=== PATIENT | male | born 1935 | race Caucasian/White ===

== ENCOUNTER 2016-10-22 19:33 | Inpatient (IN) | payer MEDICARE, OTHER ==
[~2016-10-22] VITALS: Ht 172.7 cm; Wt 63.0 kg
[2016-10-22] MEDS ORDERED: PANT40TA4 PO (19:49)
[2016-10-22] MEDS ORDERED: ACET-73 PO (19:49)
[2016-10-22] MEDS ORDERED: MIRT15TA7 PO (19:49)
[2016-10-22] MEDS ORDERED: DONE5TAB34 PO (19:49)
[2016-10-22] MEDS ORDERED: ATOR40TA PO (19:49)
[2016-10-22] MEDS ORDERED: [UNRECOGNIZED DRUG - CODE] IV (19:49)
[2016-10-22] MEDS ORDERED: ASPI81TA31 PO (19:49)
[2016-10-22] MEDS ORDERED: BLOO-360 IN (19:49)
[2016-10-22] MEDS ORDERED: GLUC1VIA4 IM (19:49)
[2016-10-22] MEDS ORDERED: DEXT50VI3 IV (19:49)
[2016-10-22] MEDS ORDERED: MELO-270 PO (19:49)
[2016-10-22] MEDS ORDERED: DEXT15LI12 PO (19:49)
[2016-10-22] MEDS ORDERED: METF500T4 PO (19:49)
[2016-10-22] MEDS ORDERED: METO-304 PO (19:49)
[2016-10-22] MEDS ORDERED: ALOG12.52 PO (19:49)
[2016-10-22] MEDS ORDERED: NIAC500T23 PO (19:49)
[2016-10-22] MEDS ORDERED: AMLO10TA2 PO (19:49)
[2016-10-22 20:29] LABS: BASOPHILS # (AUTO) 0.1 K/uL (0.0-0.2); BASOPHILS % (AUTO) 0.7 % (0.0-2.0); EOSINOPHILS # (AUTO) 0.1 K/uL (0.0-0.7); EOSINOPHILS % (AUTO) 0.7 % (0.0-7.0); HEMATOCRIT 48.1 % (40.0-50.0); HEMOGLOBIN 16.4 g/dL (14.0-18.0); LYMPHOCYTES # (AUTO) 1.6 K/uL (0.8-4.8); LYMPHOCYTES % (AUTO) 13.8 % (20.5-51.5); MEAN CORPUSCULAR HEMOGLOBIN 30.3 uug (27.0-31.0); MEAN CORPUSCULAR HGB CONC 34 g/dL (32.0-37.0); MEAN CORPUSCULAR VOLUME 88.7 fL (82.0-92.0); MONOCYTES # (AUTO) 0.6 K/uL (0.1-1.30); MONOCYTES % (AUTO) 5.2 % (0.0-11.0); NEUTROPHILS # (AUTO) 8.9 K/uL (1.8-8.9); NEUTROPHILS % (AUTO) 79.6 % (38.5-71.5); PLATELET COUNT (AUTO) 155 K/uL (150-450); RED BLOOD CELL COUNT(AUTO) 5.42 MIL/uL (4.70-6.10); RED CELL DISTRIBUTION WIDTH 13.8 % (11.5-14.5); WHITE BLOOD COUNT (AUTO) 11.3 K/uL (4.0-11.2)
[2016-10-22 20:31] LABS: CALCIUM 9.2 mg/dL (8.5-10.1); CARBON DIOXIDE 29 mmol/L (21-32); CHLORIDE 108 mmol/L (98-107); CREATININE 1.1 mg/dL (0.6-1.3); GLUCOSE 100 mg/dL (74-106); POTASSIUM 4.2 mmol/L (3.5-5.1); SODIUM SERUM 143 mmol/L (136-145); UREA NITROGEN, BLOOD 35 mg/dL (7-18)
[2016-10-22 20:37] LABS: ETHANOL < 3 MG/DL (0-0)
[2016-10-22 20:38] LABS: ALANINE AMINOTRANSFERASE 53 U/L (16-63); ALBUMIN 3.3 g/dL (3.4-5.0); ALKALINE PHOSPHATASE 69 U/L (50-136); ASPARTATE AMINOTRANSFERASE 28 U/L (15-37); BILIRUBIN,DIRECT 0.2 mg/dL (0.0-0.2); BILIRUBIN,TOTAL 0.7 mg/dL (0.2-1.0); TOTAL PROTEIN, SERUM 6.7 g/dL (6.4-8.2)
[2016-10-22 20:40] LABS: ACETAMINOPHEN < 2.0 ug/mL (10-30)
[2016-10-22 20:44] LABS: THYROID STIMULATING HORMONE 1.348 mIU/mL (0.358-3.740)
[2016-10-23] MEDS ORDERED: MAG HYDROX/AL HYDROX/SIMETH 30 ML LIQUID UDC PO PRN (00:45)
[2016-10-23] MEDS ORDERED: ACETAMINOPHEN 325 MG TABLET PO PRN (00:45)
[2016-10-23] MEDS ORDERED: LORAZEPAM 1 MG TABLET PO PRN (00:45)
[2016-10-23] MEDS ORDERED: MAGNESIUM HYDROXIDE 30 ML LIQUID UDC PO PRN (00:45)
[2016-10-23 02:46] VITALS: BP 133/83
[2016-10-23 07:30] VITALS: BP 133/91
[2016-10-23] MEDS ORDERED: BLOOD SUGAR DIAGNOSTIC 1 EACH STRIP VI SCH (07:30)
[2016-10-23 12:15] LABS: CALCIUM 9.4 mg/dL (8.5-10.1); CREATININE 1.1 mg/dL (0.6-1.3); POTASSIUM 4.2 mmol/L (3.5-5.1)
[2016-10-23 16:00] VITALS: BP 142/85
[2016-10-23] MEDS: METFORMIN HCL 500 MG TABLET PO SCH (16:21)
[2016-10-23 20:02] VITALS: BP 131/85
[2016-10-23] MEDS: DONEPEZIL 5 MG TABLET PO SCH (20:39)
[2016-10-23] MEDS: MIRTAZAPINE 15 MG TABLET PO SCH (20:39)
[2016-10-23] MEDS: ATORVASTATIN 10 MG TABLET PO SCH (20:39)
[2016-10-23] MEDS: ARIPIPRAZOLE 2 MG TABLET PO SCH (20:39)
[2016-10-24] MEDS: PANTOPRAZOLE SODIUM 40 MG TABLET.DR PO SCH (06:26)
[2016-10-24 07:30] VITALS: BP 131/88
[2016-10-24] MEDS: METFORMIN HCL 500 MG TABLET PO SCH ×2 (09:09→16:35)
[2016-10-24] MEDS: ASPIRIN 81 MG TAB.CHEW PO SCH (09:09)
[2016-10-24] MEDS: MELOXICAM 7.5 MG TABLET PO SCH (09:10)
[2016-10-24] MEDS: AMLODIPINE 10 MG TABLET PO SCH (09:10)
[2016-10-24 16:00] VITALS: BP 144/85
[2016-10-24] MEDS ORDERED: PNEUMOCOCCAL 23-VAL P-SAC VAC 0.5 ML VIAL IM ONE (18:00)
[2016-10-24 20:05] VITALS: BP 122/80
[2016-10-24] MEDS: DONEPEZIL 5 MG TABLET PO SCH (20:05)
[2016-10-24] MEDS: ARIPIPRAZOLE 2 MG TABLET PO SCH (20:05)
[2016-10-24] MEDS: ATORVASTATIN 10 MG TABLET PO SCH (20:05)
[2016-10-24] MEDS: MIRTAZAPINE 15 MG TABLET PO SCH (20:05)
[2016-10-25] MEDS: PANTOPRAZOLE SODIUM 40 MG TABLET.DR PO SCH (06:14)
[2016-10-25 07:57] VITALS: BP 123/85
[2016-10-25 08:09] LABS: BASOPHILS % (AUTO) 0.5 % (0.0-2.0); EOSINOPHILS # (AUTO) 0.1 K/uL (0.0-0.7); EOSINOPHILS % (AUTO) 0.8 % (0.0-7.0); HEMOGLOBIN 15.8 g/dL (14.0-18.0); LYMPHOCYTES # (AUTO) 1.6 K/uL (0.8-4.8); LYMPHOCYTES % (AUTO) 17.1 % (20.5-51.5); MEAN CORPUSCULAR HEMOGLOBIN 30.3 uug (27.0-31.0); MEAN CORPUSCULAR HGB CONC 34 g/dL (32.0-37.0); MEAN CORPUSCULAR VOLUME 88.6 fL (82.0-92.0); MONOCYTES # (AUTO) 0.8 K/uL (0.1-1.30); NEUTROPHILS # (AUTO) 6.9 K/uL (1.8-8.9); NEUTROPHILS % (AUTO) 73.6 % (38.5-71.5); PLATELET COUNT (AUTO) 177 K/uL (150-450); RED BLOOD CELL COUNT(AUTO) 5.19 MIL/uL (4.70-6.10); RED CELL DISTRIBUTION WIDTH 13.8 % (11.5-14.5); WHITE BLOOD COUNT (AUTO) 9.4 K/uL (4.0-11.2)
[2016-10-25 08:43] LABS: ALBUMIN 3.2 g/dL (3.4-5.0); BILIRUBIN,TOTAL 0.7 mg/dL (0.2-1.0); CALCIUM 8.9 mg/dL (8.5-10.1); CREATININE 1.2 mg/dL (0.6-1.3); PHOSPHOROUS 2.6 mg/dL (2.5-4.9); POTASSIUM 4.2 mmol/L (3.5-5.1); TOTAL PROTEIN, SERUM 6.6 g/dL (6.4-8.2)
[2016-10-25] MEDS: AMLODIPINE 10 MG TABLET PO SCH (08:43)
[2016-10-25] MEDS: METFORMIN HCL 500 MG TABLET PO SCH ×2 (08:43→16:30)
[2016-10-25] MEDS: ASPIRIN 81 MG TAB.CHEW PO SCH (08:43)
[2016-10-25] MEDS: MELOXICAM 7.5 MG TABLET PO SCH (08:43)
[2016-10-25 17:05] VITALS: BP 117/76
[2016-10-25] MEDS: MIRTAZAPINE 15 MG TABLET PO SCH (21:17)
[2016-10-25] MEDS: ATORVASTATIN 10 MG TABLET PO SCH (21:17)
[2016-10-25] MEDS: DONEPEZIL 5 MG TABLET PO SCH (21:17)
[2016-10-25] MEDS: ARIPIPRAZOLE 2 MG TABLET PO SCH (21:17)
[2016-10-25 21:31] VITALS: BP 116/67
[2016-10-26] MEDS: PANTOPRAZOLE SODIUM 40 MG TABLET.DR PO SCH (06:21)
[2016-10-26 07:30] VITALS: BP 129/86
[2016-10-26] MEDS: ASPIRIN 81 MG TAB.CHEW PO SCH (09:27)
[2016-10-26] MEDS: AMLODIPINE 10 MG TABLET PO SCH (09:27)
[2016-10-26] MEDS: MELOXICAM 7.5 MG TABLET PO SCH (09:28)
[2016-10-26] MEDS: METFORMIN HCL 500 MG TABLET PO SCH ×2 (09:28→16:55)
[2016-10-26 16:45] VITALS: BP 139/90
[2016-10-26 20:11] VITALS: BP 121/82
[2016-10-26] MEDS: ARIPIPRAZOLE 2 MG TABLET PO SCH (20:22)
[2016-10-26] MEDS: DONEPEZIL 5 MG TABLET PO SCH (20:22)
[2016-10-26] MEDS: MIRTAZAPINE 15 MG TABLET PO SCH ×2 (20:22→21:06)
[2016-10-26] MEDS: ATORVASTATIN 10 MG TABLET PO SCH (20:22)
[2016-10-26] MEDS: TEMAZEPAM 7.5 MG CAPSULE PO PRN (22:59)
[2016-10-27] MEDS: PANTOPRAZOLE SODIUM 40 MG TABLET.DR PO SCH (06:11)
[2016-10-27 07:30] VITALS: BP 106/80
[2016-10-27] MEDS: METFORMIN HCL 500 MG TABLET PO SCH ×2 (08:45→17:04)
[2016-10-27] MEDS: MELOXICAM 7.5 MG TABLET PO SCH (08:46)
[2016-10-27] MEDS: ASPIRIN 81 MG TAB.CHEW PO SCH (08:46)
[2016-10-27] MEDS: AMLODIPINE 10 MG TABLET PO SCH (08:51)
[2016-10-27 16:19] VITALS: BP 123/85
[2016-10-27 20:05] VITALS: BP 123/91
[2016-10-27] MEDS: ATORVASTATIN 10 MG TABLET PO SCH (20:16)
[2016-10-27] MEDS: MIRTAZAPINE 15 MG TABLET PO SCH (20:16)
[2016-10-27] MEDS: DONEPEZIL 5 MG TABLET PO SCH (20:16)
[2016-10-27] MEDS: ARIPIPRAZOLE 2 MG TABLET PO SCH (20:16)
[2016-10-28] MEDS: PANTOPRAZOLE SODIUM 40 MG TABLET.DR PO SCH (06:36)
[2016-10-28 07:30] VITALS: BP 127/79
[2016-10-28] MEDS: METFORMIN HCL 500 MG TABLET PO SCH ×2 (07:30→16:41)
[2016-10-28] MEDS: ASPIRIN 81 MG TAB.CHEW PO SCH (08:21)
[2016-10-28] MEDS: MELOXICAM 7.5 MG TABLET PO SCH (08:21)
[2016-10-28] MEDS: AMLODIPINE 10 MG TABLET PO SCH (08:22)
[2016-10-28 16:00] VITALS: BP 111/74
[2016-10-28 19:56] VITALS: BP 123/87
[2016-10-28] MEDS: ARIPIPRAZOLE 2 MG TABLET PO SCH (20:34)
[2016-10-28] MEDS: ATORVASTATIN 10 MG TABLET PO SCH (20:34)
[2016-10-28] MEDS: DONEPEZIL 5 MG TABLET PO SCH (20:34)
[2016-10-28] MEDS: MIRTAZAPINE 15 MG TABLET PO SCH (20:47)
[2016-10-29] MEDS: PANTOPRAZOLE SODIUM 40 MG TABLET.DR PO SCH (06:56)
[2016-10-29 07:30] VITALS: BP 123/84
[2016-10-29] MEDS: METFORMIN HCL 500 MG TABLET PO SCH ×2 (08:54→17:36)
[2016-10-29] MEDS: MELOXICAM 7.5 MG TABLET PO SCH (08:54)
[2016-10-29] MEDS: ASPIRIN 81 MG TAB.CHEW PO SCH (08:54)
[2016-10-29] MEDS: AMLODIPINE 10 MG TABLET PO SCH (08:55)
[2016-10-29 15:16] VITALS: BP 121/80
[2016-10-29] MEDS: MIRTAZAPINE 15 MG TABLET PO SCH (22:01)
[2016-10-29] MEDS: DONEPEZIL 5 MG TABLET PO SCH (22:01)
[2016-10-29] MEDS: ATORVASTATIN 10 MG TABLET PO SCH (22:01)
[2016-10-29] MEDS: ARIPIPRAZOLE 2 MG TABLET PO SCH (22:01)
[2016-10-30 07:30] VITALS: BP 123/84
[2016-10-30] MEDS: PANTOPRAZOLE SODIUM 40 MG TABLET.DR PO SCH ×2 (08:21→09:50)
[2016-10-30] MEDS: METFORMIN HCL 500 MG TABLET PO SCH ×2 (08:21→17:40)
[2016-10-30] MEDS: MELOXICAM 7.5 MG TABLET PO SCH (09:00)
[2016-10-30] MEDS: AMLODIPINE 10 MG TABLET PO SCH (09:00)
[2016-10-30] MEDS: ASPIRIN 81 MG TAB.CHEW PO SCH (09:00)
[2016-10-30 15:55] VITALS: BP 103/61
[2016-10-30 20:00] VITALS: BP 109/76
[2016-10-30] MEDS: DONEPEZIL 5 MG TABLET PO SCH (21:29)
[2016-10-30] MEDS: MIRTAZAPINE 15 MG TABLET PO SCH (21:29)
[2016-10-30] MEDS: ATORVASTATIN 10 MG TABLET PO SCH (21:29)
[2016-10-30] MEDS: ARIPIPRAZOLE 2 MG TABLET PO SCH (21:29)
[2016-10-31 07:30] VITALS: BP 117/81
[2016-10-31] MEDS: METFORMIN HCL 500 MG TABLET PO SCH ×2 (08:53→18:10)
[2016-10-31] MEDS: MELOXICAM 7.5 MG TABLET PO SCH (08:54)
[2016-10-31] MEDS: AMLODIPINE 10 MG TABLET PO SCH (08:54)
[2016-10-31] MEDS: ASPIRIN 81 MG TAB.CHEW PO SCH (08:54)
[2016-10-31 15:44] VITALS: BP 102/65
[2016-10-31 20:00] VITALS: BP 117/74
[2016-10-31] MEDS: MIRTAZAPINE 15 MG TABLET PO SCH (20:16)
[2016-10-31] MEDS: ARIPIPRAZOLE 2 MG TABLET PO SCH (20:16)
[2016-10-31] MEDS: ATORVASTATIN 10 MG TABLET PO SCH (20:16)
[2016-10-31] MEDS: DONEPEZIL 5 MG TABLET PO SCH (20:16)
[2016-10-31] MEDS: TEMAZEPAM 7.5 MG CAPSULE PO PRN (23:30)
[2016-11-01] MEDS: PANTOPRAZOLE SODIUM 40 MG TABLET.DR PO SCH (06:42)
[2016-11-01 07:30] VITALS: BP 117/85
[2016-11-01] MEDS: MELOXICAM 7.5 MG TABLET PO SCH (09:27)
[2016-11-01 09:28] VITALS: BP 117/85
[2016-11-01] MEDS: METFORMIN HCL 500 MG TABLET PO SCH (09:28)
[2016-11-01] MEDS: ASPIRIN 81 MG TAB.CHEW PO SCH (09:28)
[2016-11-01] MEDS: AMLODIPINE 10 MG TABLET PO SCH (09:28)
== END 2016-11-01 13:00 | DRG 885 ==
LOC: ER 19:35 → GPS 23:25
PROVIDERS: ADMIT Psychiatry & Neurology Psychiatry; ATTEND Internal Medicine
DX: F32.3 Major depressive disorder, single episode, severe with psychotic features (principal); N17.0 Acute kidney failure with tubular necrosis; I11.0 Hypertensive heart disease with heart failure; G93.40 Encephalopathy, unspecified; I50.32 Chronic diastolic (congestive) heart failure; F29 Unspecified psychosis not due to a substance or known physiological condition; E78.5 Hyperlipidemia, unspecified; E11.9 Type 2 diabetes mellitus without complications; F03.90 Unspecified dementia, unspecified severity, without behavioral disturbance, psychotic disturbance, mood disturbance, and anxiety; F41.9 Anxiety disorder, unspecified; K57.90 Diverticulosis of intestine, part unspecified, without perforation or abscess without bleeding; K21.9 Gastro-esophageal reflux disease without esophagitis; I71.2 Thoracic aortic aneurysm, without rupture; G47.00 Insomnia, unspecified; I25.10 Atherosclerotic heart disease of native coronary artery without angina pectoris; Z85.46 Personal history of malignant neoplasm of prostate; Z90.79 Acquired absence of other genital organ(s); F32.9 Major depressive disorder, single episode, unspecified; S00.81XA Abrasion of other part of head, initial encounter; X58.XXXA Exposure to other specified factors, initial encounter; Y93.9 Activity, unspecified; Y92.009 Unspecified place in unspecified non-institutional (private) residence as the place of occurrence of the external cause; Z79.84 Long term (current) use of oral hypoglycemic drugs; R91.1 Solitary pulmonary nodule; Z91.81 History of falling; D73.89 Other diseases of spleen; R10.9 Unspecified abdominal pain
CPT/HCPCS: 36415; 83735; 84100; 84443; 85025; 85730; 90732; 93005; 93307; 97001; 97116; 97530; A4663; G0480-TC; G6040-TC